=== PATIENT | female | born 2005 | race Hispanic/Latino ===

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

== ENCOUNTER 2024-09-07 | Inpatient (IN) | payer OTHER ==
[~2024-09-07] VITALS: Ht 152.4 cm; Wt 63.5 kg
[2024-09-08] MEDS ORDERED: CALCIUM CARBONATE 500 MG CHEW PO PRN
[2024-09-08] MEDS ORDERED: LACTATED RINGER'S 1,000 ML IV SCH
[2024-09-08] MEDS ORDERED: MAGNESIUM HYDROXIDE/AL HYDROX 30 ML CUP PO PRN
[2024-09-08] MEDS ORDERED: miSOPROStoL 25 MCG TAB PV SCH
[2024-09-08] MEDS ORDERED: LACTATED RINGER'S 1,000 ML IV PRN
[2024-09-08 00:54] LABS: HEMATOCRIT 35.9 % (35.0-50.0); HEMOGLOBIN 12.2 g/dL (12.0-18.0); MCH 26.5 (27-36); MCV 77.9 fl (81-99); RBC 4.61 M/ul (4.3-5.7); RDW 15.2 (10.5-15.0)
[2024-09-08 01:30] LABS: ABO O; ANTIBODY SCREEN NEGATIVE; RH POSITIVE
[2024-09-08 01:58] VITALS: BP 115/67
[2024-09-08 02:06] LABS: AMPHETAMINES, URINE NEGATIVE (NEGATIVE); BARBITURATES, URINE NEGATIVE (NEGATIVE); BENZODIAZEPINE, URINE NEGATIVE (NEGATIVE); BUPRENORPHINE, URINE NEGATIVE (NEGATIVE); CANNABINOID, URINE NEGATIVE (NEGATIVE); COCAINE, URINE NEGATIVE (NEGATIVE); ECSTASY, URINE NEGATIVE (NEGATIVE); FENTANYL, URINE NEGATIVE (NEGATIVE); METHADONE, URINE NEGATIVE (NEGATIVE); OPIATES, URINE NEGATIVE (NEGATIVE); OXYCODONE, URINE NEGATIVE (NEGATIVE); PHENCYCLIDINE, URINE NEGATIVE (NEGATIVE)
[2024-09-08] MEDS ORDERED: OXYTOCIN/0.9 % SODIUM CHLORIDE 30 UNITS/500 ML BAG IV SCH (07:30)
[2024-09-08] MEDS ORDERED: fentaNYL citrate 100 MCG/2 ML VIAL ONE (08:22)
[2024-09-08] MEDS ORDERED: ROPIVACAINE 0.2% 200 ML BAG ONE (08:22)
[2024-09-08] MEDS ORDERED: LACTATED RINGER'S 500 ML IV PRN (09:00)
[2024-09-08] MEDS ORDERED: ePHEDrine sulfate 5 MG/ML SYRINGE IV PRN (09:00)
[2024-09-08] MEDS ORDERED: LACTATED RINGER'S 2,000 ML IV ONE (09:00)
[2024-09-08] MEDS ORDERED: ROPIVACAINE 0.2% 200 ML BAG EPIDURAL SCH (09:00)
[2024-09-08] MEDS ORDERED: ePHEDrine KIT FOR FBC IV ONE (09:05)
[2024-09-08] MEDS ORDERED: ondansetron HCL 4 MG/2 ML VIAL ONE (09:09)
[2024-09-08] MEDS ORDERED: ondansetron HCL 4 MG/2 ML VIAL IV ONE (09:15)
[2024-09-08] MEDS ORDERED: MAGNESIUM HYDROXIDE 30 ML UDC PO PRN (15:15)
[2024-09-08] MEDS ORDERED: BENZOCAINE 60 ML AEROSOL TOP PRN (15:15)
[2024-09-08] MEDS ORDERED: ACETAMINOPHEN 325 MG TAB PO PRN (15:15)
[2024-09-08] MEDS ORDERED: OXYTOCIN/0.9 % SODIUM CHLORIDE 500 ML IV SCH (15:15)
[2024-09-08] MEDS ORDERED: LIDOCAINE 2% VISCOUS 6 ML SYR TOP ONE (15:15)
[2024-09-08] MEDS ORDERED: WITCH HAZEL/GLYCERIN 1 EA PAD TOP PRN (15:15)
[2024-09-08] MEDS ORDERED: HYDROCORTISONE ACETATE 25 MG SUPP PR PRN (15:15)
[2024-09-08] MEDS ORDERED: IBUPROFEN 600 MG TAB PO PRN (15:15)
[2024-09-08] MEDS ORDERED: SENNOSIDES/DOCUSATE 1 EA TAB PO SCH (21:00)
== END 2024-09-09 18:28 | disposition home or self-care (01) | DRG 807 ==
LOC: FBC 09-08 00:05
PROVIDERS: ADMIT Obstetrics & Gynecology; ATTEND Obstetrics & Gynecology
PROC: 10E0XZZ Delivery of Products of Conception, External Approach (ICD-10-PCS; principal; 2024-09-08)
PROC: 0HQ9XZZ Repair Perineum Skin, External Approach (ICD-10-PCS; 2024-09-08)
PROC: 3E0R3BZ Introduction of Anesthetic Agent into Spinal Canal, Percutaneous Approach (ICD-10-PCS; 2024-09-08)
PROC: 00HU33Z Insertion of Infusion Device into Spinal Canal, Percutaneous Approach (ICD-10-PCS; 2024-09-08)
DX: O26.643 Intrahepatic cholestasis of pregnancy, third trimester (principal); Z37.0 Single live birth; E78.79 Other disorders of bile acid and cholesterol metabolism; K76.89 Other specified diseases of liver; O99.343 Other mental disorders complicating pregnancy, third trimester; F41.9 Anxiety disorder, unspecified; F32.A Depression, unspecified; Z3A.38 38 weeks gestation of pregnancy; O77.0 Labor and delivery complicated by meconium in amniotic fluid; O66.0 Obstructed labor due to shoulder dystocia; O70.0 First degree perineal laceration during delivery; Z79.899 Other long term (current) drug therapy
CPT/HCPCS: 01960; 36415; 80307; 85027; 86850; 86900; 86901; A9270; J2405; J2795; J3010; J7121